=== PATIENT | female | born 1940 | race Caucasian/White ===

== ENCOUNTER 2019-04-11 18:48 | Observation (INO) ==
[2019-04-11 19:19] LABS: Basophils % 0.3 %; Eosinophils # 0.1 K/mcL (0.0-0.6); Eosinophils % 0.8 %; Hematocrit 37.6 % (35.3-44.9); Hemoglobin 12.6 g/dL (11.5-15.4); Immature Granulocytes % 0.3 % (0-4); Lymphocytes # 1.1 K/mcL (0.6-4.6); Lymphocytes % 14.4 %; Mean Corpuscular HGB Conc 33.5 g/dL (31.6-35.5); Mean Corpuscular Hemoglobin 31.2 pg (28.0-33.3); Mean Corpuscular Volume 93.1 fL (83.0-100.0); Mean Platelet Volume 9.7 fL (9.4-12.4); Monocytes # 0.6 K/mcL (0.0-1.3); Monocytes % 7.6 %; Neutrophils # 6.1 K/mcL (1.6-8.9); Platelet Count 221 K/mcL (140-400); Red Blood Count 4.04 M/mcL (3.82-4.97); Red Cell Distribution Width 12.7 % (11.5-14.5); Segmented Neutrophils % 76.6 %; White Blood Count 7.9 K/mcL (4.3-11.1)
[2019-04-11 19:24] LABS: INR 1.1; Prothrombin Time 12.2 Seconds (9.4-12.1)
[2019-04-11 19:27] LABS: Activated Partial Thrombo Time 27.9 Seconds (26.0-36.0)
[2019-04-11 19:32] LABS: BUN/Creatinine Ratio 26 (6-26); Blood Urea Nitrogen 17 mg/dL (8-23); Calcium 9.3 mg/dL (8.6-10.3); Carbon Dioxide 30 mEq/L (23-29); Chloride 101 mEq/L (98-107); Glucose 162 mg/dL (70-105); Osmolality,Calculated 289 (280-300); Sodium 137 mEq/L (136-145); eGFR For African Americans > 60 (> 60); eGFR For Non-African Americans > 60 (> 60)
[2019-04-11 19:36] LABS: Troponin I < 0.03 ng/mL (< 0.04)
[2019-04-11] MEDS ORDERED: Nitroglycerin 1 INCH/GM PACKET TP ONE (21:52)
[2019-04-11] MEDS ORDERED: Ondansetron 4 MG/2 ML VIAL IVP PRN (22:55)
[2019-04-11] MEDS ORDERED: Mag Hydrox/Al Hydrox/Simeth 30 ML UDC PO PRN (22:55)
[2019-04-11] MEDS ORDERED: Naloxone 0.4 MG/ML INJ IVP PRN (22:55)
[2019-04-12 02:18] LABS: Basophils % 0.2 %; Eosinophils % 0.3 %; Hematocrit 38.5 % (35.3-44.9); Hemoglobin 13.1 g/dL (11.5-15.4); Immature Granulocytes % 0.3 % (0-4); Lymphocytes # 1.1 K/mcL (0.6-4.6); Lymphocytes % 10.1 %; Mean Corpuscular Hemoglobin 31.3 pg (28.0-33.3); Mean Corpuscular Volume 92.1 fL (83.0-100.0); Mean Platelet Volume 9.7 fL (9.4-12.4); Monocytes # 0.9 K/mcL (0.0-1.3); Monocytes % 7.8 %; Platelet Count 223 K/mcL (140-400); Red Blood Count 4.18 M/mcL (3.82-4.97); Red Cell Distribution Width 12.8 % (11.5-14.5); Segmented Neutrophils % 81.3 %; White Blood Count 11.2 K/mcL (4.3-11.1)
[2019-04-12 02:22] LABS: Neutrophils # 9.1 K/mcL (1.6-8.9)
[2019-04-12 02:38] LABS: BUN/Creatinine Ratio 24 (6-26); Blood Urea Nitrogen 14 mg/dL (8-23); Calcium 9.1 mg/dL (8.6-10.3); Carbon Dioxide 27 mEq/L (23-29); Chloride 101 mEq/L (98-107); Glucose 114 mg/dL (70-105); Osmolality,Calculated 285 (280-300); Potassium 3.7 mEq/L (3.5-5.1); Sodium 137 mEq/L (136-145); eGFR For African Americans > 60 (> 60); eGFR For Non-African Americans > 60 (> 60)
[2019-04-12] MEDS ORDERED: Lisinopril 20 MG TABLET PO SCH (09:00)
[2019-04-12] MEDS ORDERED: AMILoride/HCTZ 5-50mg 1 EACH TABLET PO SCH (09:00)
[2019-04-12 10:52] VITALS: BP 110/68
== END 2019-04-12 14:29 | disposition home or self-care (01) ==
LOC: EMEROOPIK 18:48 → INPPIK 18:48
PROVIDERS: ADMIT Internal Medicine; ATTEND Internal Medicine